=== PATIENT | male | born 1980 | race African-American/Black ===

== ENCOUNTER 2017-09-15 02:44 | Emergency (ER) | payer BC ==
--- NOTE | 2017-09-15 03:38 | ER ---
Nurse's Notes [facility] Name: Vidal Calderon Jr Age: 36 yrs Sex: Male : 1980 Arrival Date: 09/15/2017 Time: 02:49 Bed 20 Private MD: Diagnosis: urethritis Presentation: 09/15 02:55 Presenting complaint: Patient states: that he is having burning with urination. No fc frequency,. Has been going on x 3 days. Went to [facility] earlier and told that there was no bacteria in the urine. But the burning has continued and it is bothering him so he came to this ER. Transition of care: patient was not received from another setting of care. Onset of symptoms was September 12, 2017. Risk Assessment: Do you want to hurt yourself or someone else? Patient reports no desire to harm self or others. Initial Sepsis Screen: Does the patient meet any 2 criteria? No. Patient's initial sepsis screen is negative. Does the patient have a suspected source of infection? No. Patient's initial sepsis screen is negative. Care prior to arrival: None. 02:55 Method Of Arrival: Ambulatory fc 02:55 Acuity: ARIELLE 4 fc Triage Assessment: 02:57 General: Appears comfortable, Behavior is calm, cooperative, appropriate for age. Pain: fc Complains of pain in pelvis Pain currently is 6 out of 10 on a pain scale. Quality of pain is described as burning, Aggravated by urinating. EENT: No deficits noted. Neuro: Level of Consciousness is awake, alert, obeys commands, Oriented to person, place, time, situation. Cardiovascular: No deficits noted. Respiratory: No deficits noted. GI: No deficits noted. : Reports burning with urination. Derm: Skin is pink, warm \T\ dry. Musculoskeletal: Circulation, motion, and sensation intact. Capillary refill < 3 seconds, Range of motion: intact in all extremities. Historical: - Allergies: 03:14 No Known Allergies; lp1 - Home Meds: 03:14 lisinopril-hydrochlorothiazide 20-12.5 mg oral tab once daily [Active]; lp1 - PMHx: 03:14 Hypertension; lp1 - PSHx: 03:14 Knee surgery; lp1 - Immunization history:: Last tetanus immunization: unknown. - Social history:: Smoking status: Patient/guardian denies using tobacco. - Ebola Screening: : Patient negative for fever greater than or equal to 101.5 degrees Fahrenheit, and additional compatible Ebola Virus Disease symptoms Patient denies exposure to infectious person Patient denies travel to an Ebola-affected area in the 21 days before illness onset. Screenin:57 Abuse screen: Denies threats or abuse. Nutritional screening: No deficits noted. Tuberculosis screening: No symptoms or risk factors identified. Fall Risk None identified. Assessment: 03:12 General: Appears in no apparent distress. Behavior is appropriate for age. Pain: Denies lp1 pain. Neuro: Level of Consciousness is awake, alert, obeys commands. Cardiovascular: Patient's skin is warm and dry. Respiratory: Respiratory effort is even, unlabored. GI: No signs and/or symptoms were reported involving the gastrointestinal system. : Reports burning with urination. EENT: No signs and/or symptoms were reported regarding the EENT system. Derm: Skin is intact, Skin is dry, Skin is normal. Musculoskeletal: Circulation, motion, and sensation intact. Vital Signs: 02:55 BP 136 / 88; Pulse 68; Resp 18; Temp 98.8(O); Pulse Ox 100% on R/A; Weight 142.88 kg (R); Height 6 ft. 6 in. (198.12 cm) (R); Pain 6/10; 02:55 Body Mass Index 36.40 (142.88 kg, 198.12 cm) ED Course: 02:49 Patient arrived in ED. es 02:55 Arm band placed on Patient placed in an exam room, on a stretcher. 02:56 Triage completed. 02:57 Patient has correct armband on for positive identification. Bed in low position. Call light in reach. 02:59 Ondina Garrett, RN is Primary Nurse. lp1 03:23 No provider procedures requiring assistance completed. Patient did not have IV access lp1 during this emergency room visit. 03:27 Porfirio Ramsey MD is Attending Physician. tw4 Administered Medications: No medications were administered Outcome: 03:23 Medical screen evaluation completed per provider. Patient declined treatment. lp1 03:23 Condition: good 03:23 Instructed on follow up and referral plans. lp1 03:37 Discharge ordered by . tw4 03:38 Patient left the ED. lp1 Signatures: Carmen Monique Felicia RN RN fc Ondina Garrett RN RN lp1 Porfirio Ramsey MD MD tw4
[2017-09-15 05:20] LABS: Urine Blood NEGATIVE (NEG); Urine Glucose NEGATIVE (NEG); Urine Protein NEGATIVE (NEG)
--- NOTE | 2017-09-16 03:39 | EDPHYS ---
Physician Documentation [facility] Name: Vidal Calderon Jr Age: 36 yrs Sex: Male : 1980 Arrival Date: 09/15/2017 Time: 02:49 Bed 20 Private MD: ED Physician Porfirio Ramsey HPI: 09/15 04:12 This 36 yrs old Black Male presents to ER via Ambulatory with complaints of Urinary tw4 Problem. 04:12 The patient presents with urinary symptoms. Onset: The symptoms/episode began/occurred tw4 today. Modifying factors: The symptoms are alleviated by nothing, the symptoms are aggravated by nothing. Associated signs and symptoms: The patient has no apparent associated signs or symptoms. Severity of symptoms: At their worst the symptoms were moderate, in the emergency department the symptoms are unchanged. The patient has not experienced similar symptoms in the past. Historical: - Allergies: 03:14 No Known Allergies; lp1 - Home Meds: 03:14 lisinopril-hydrochlorothiazide 20-12.5 mg oral tab once daily [Active]; lp1 - PMHx: 03:14 Hypertension; lp1 - PSHx: 03:14 Knee surgery; lp1 - Immunization history:: Last tetanus immunization: unknown. - Social history:: Smoking status: Patient/guardian denies using tobacco. - Ebola Screening: : Patient negative for fever greater than or equal to 101.5 degrees Fahrenheit, and additional compatible Ebola Virus Disease symptoms Patient denies exposure to infectious person Patient denies travel to an Ebola-affected area in the 21 days before illness onset. ROS: 04:12 Constitutional: Negative for fever, chills, and weight loss, Cardiovascular: Negative tw4 for chest pain, palpitations, and edema, Respiratory: Negative for shortness of breath, cough, wheezing, and pleuritic chest pain, Abdomen/GI: Negative for abdominal pain, nausea, vomiting, diarrhea, and constipation. 04:12 : Positive for urinary symptoms, burning with urination, Negative for hematuria, pelvic pain, flank pain, bladder incontinence, foul smelling urine, penile discharge. Exam: 04:12 Constitutional: This is a well developed, well nourished patient who is awake, alert, tw4 and in no acute distress. Head/Face: Normocephalic, atraumatic. Chest/axilla: Normal chest wall appearance and motion. Nontender with no deformity. No lesions are appreciated. Cardiovascular: Regular rate and rhythm with a normal S1 and S2. No gallops, murmurs, or rubs. Normal PMI, no JVD. No pulse deficits. Respiratory: Lungs have equal breath sounds bilaterally, clear to auscultation and percussion. No rales, rhonchi or wheezes noted. No increased work of breathing, no retractions or nasal flaring. Abdomen/GI: Soft, non-tender, with normal bowel sounds. No distension or tympany. No guarding or rebound. No evidence of tenderness throughout. Vital Signs: 02:55 BP 136 / 88; Pulse 68; Resp 18; Temp 98.8(O); Pulse Ox 100% on R/A; Weight 142.88 kg fc (R); Height 6 ft. 6 in. (198.12 cm) (R); Pain 6/10; 02:55 Body Mass Index 36.40 (142.88 kg, 198.12 cm) MDM: 03:27 Patient medically screened. tw4 04:12 Differential diagnosis: nonspecific abdominal pain, UTI, urinary retention. Data tw4 reviewed: vital signs, nurses notes. Counseling: I had a detailed discussion with the patient and/or guardian regarding: the historical points, exam findings, and any diagnostic results supporting the discharge/admit diagnosis. ED course: Pt medicallly screened and refused treatment. 09/15 03:15 Order name: Urine Dipstick--Ancillary (enter results) rg2 Administered Medications: No medications were administered Disposition: 09/15/17 03:37 Discharged to Home. Impression: urethritis. - Condition is Stable. - Discharge Instructions: Urethritis, Adult. - Medication Reconciliation Form, Thank You Letter, Antibiotic Education, Prescription Opioid Use form. - Follow up: Private Physician; When: As needed; Reason: Recheck today's complaints, Re-evaluation by your physician. - Problem is new. - Symptoms are unchanged. Signatures: Dispatcher [employer] EDMS Iris Espitia RN RN Ondina Garrett RN RN lp1 Porfirio Ramsey MD MD tw4 Corrections: (The following items were deleted from the chart) 03:38 03:37 09/15/2017 03:37 Discharged to Home. Impression: urethritis. Condition is Stable. lp1 Forms are Medication Reconciliation Form, Thank You Letter, Antibiotic Education, Prescription Opioid Use. Follow up: Private Physician; When: As needed; Reason: Recheck today's complaints, Re-evaluation by your physician. Problem is new. Symptoms are unchanged. tw4
== END 2017-09-15 03:38 | disposition home or self-care (01) ==
LOC: ER 02:44
DX: N34.2 Other urethritis (principal); I10 Essential (primary) hypertension
CPT/HCPCS: 81003; 99281

== ENCOUNTER 2018-09-29 23:07 | Observation (INO) | payer BC ==
--- NOTE | 2018-09-29 23:24 | EDPHYS ---
Physician Documentation [facility] Name: Vidal Calderon Jr Age: 37 yrs Sex: Male : 1980 Arrival Date: 09/29/2018 Time: 23:08 Bed 5 Private MD: ED Physician Kirk Webb HPI: 09/29 23:17 This 37 yrs old Black Male presents to ER via Unassigned with complaints of Chest Pain, jez Chest Tightness, High Blood Pressure, Headache. 23:17 The patient or guardian reports chest pain that is located primarily in the substernal jez area, anterior chest wall, bilaterally. The pain does not radiate. Severity of pain: At its worst the pain was mild in the emergency department the pain is unchanged. 23:18 The patient has shortness of breath at rest. Onset: The symptoms/episode began/occurred jez just prior to arrival. The patient's shortness of breath has no apparent modifying factors. Severity of symptoms: At their worst the symptoms were mild moderate in the emergency department the symptoms have improved mildly. The chest pain is described as a heaviness, a pressure, squeezing. Historical: - Allergies: 23:30 metformin; rr5 23:30 amlodipine; rr5 - Home Meds: 23:30 Metoprolol Tartrate Oral [Active]; pioglitazone oral oral [Active]; rr5 - PMHx: 23:30 Hypertension; Diabetes - NIDDM; rr5 - Immunization history:: Adult Immunizations not up to date. - Social history:: Smoking status: Patient/guardian denies using tobacco, Patient/guardian denies using alcohol, street drugs. - Family history:: not pertinent. - Ebola Screening: : Patient negative for fever greater than or equal to 101.5 degrees Fahrenheit, and additional compatible Ebola Virus Disease symptoms Patient denies exposure to infectious person Patient denies travel to an Ebola-affected area in the 21 days before illness onset. ROS: 23:18 Constitutional: Negative for fever, chills, and weight loss, Eyes: Negative for injury, jez pain, redness, and discharge, ENT: Negative for injury, pain, and discharge, Neck: Negative for injury, pain, and swelling, Abdomen/GI: Negative for abdominal pain, nausea, vomiting, diarrhea, and constipation, Back: Negative for injury and pain, : Negative for injury, bleeding, discharge, and swelling, MS/Extremity: Negative for injury and deformity, Skin: Negative for injury, rash, and discoloration, Neuro: Negative for headache, weakness, numbness, tingling, and seizure, Psych: Negative for depression, anxiety, suicide ideation, homicidal ideation, and hallucinations, Allergy/Immunology: Negative for hives, rash, and allergies, Endocrine: Negative for neck swelling, polydipsia, polyuria, polyphagia, and marked weight changes, Hematologic/Lymphatic: Negative for swollen nodes, abnormal bleeding, and unusual bruising. 23:18 Cardiovascular: Positive for 23:18 Respiratory: Positive for Exam: 23:18 Constitutional: This is a well developed, well nourished patient who is awake, alert, jez and in no acute distress. Head/Face: Normocephalic, atraumatic. Eyes: Pupils equal round and reactive to light, extra-ocular motions intact. Lids and lashes normal. Conjunctiva and sclera are non-icteric and not injected. Cornea within normal limits. Periorbital areas with no swelling, redness, or edema. ENT: Nares patent. No nasal discharge, no septal abnormalities noted. Tympanic membranes are normal and external auditory canals are clear. Oropharynx with no redness, swelling, or masses, exudates, or evidence of obstruction, uvula midline. Mucous membranes moist. Neck: Trachea midline, no thyromegaly or masses palpated, and no cervical lymphadenopathy. Supple, full range of motion without nuchal rigidity, or vertebral point tenderness. No Meningismus. Chest/axilla: Normal chest wall appearance and motion. Nontender with no deformity. No lesions are appreciated. Cardiovascular: Regular rate and rhythm with a normal S1 and S2. No gallops, murmurs, or rubs. Normal PMI, no JVD. No pulse deficits. Respiratory: Lungs have equal breath sounds bilaterally, clear to auscultation and percussion. No rales, rhonchi or wheezes noted. No increased work of breathing, no retractions or nasal flaring. Abdomen/GI: Soft, non-tender, with normal bowel sounds. No distension or tympany. No guarding or rebound. No evidence of tenderness throughout. Back: No spinal tenderness. No costovertebral tenderness. Full range of motion. Male : Normal genitalia with no discharge or lesions. Skin: Warm, dry with normal turgor. Normal color with no rashes, no lesions, and no evidence of cellulitis. MS/ Extremity: Pulses equal, no cyanosis. Neurovascular intact. Full, normal range of motion. Neuro: Awake and alert, GCS 15, oriented to person, place, time, and situation. Cranial nerves II-XII grossly intact. Motor strength 5/5 in all extremities. Sensory grossly intact. Cerebellar exam normal. Normal gait. Psych: Awake, alert, with orientation to person, place and time. Behavior, mood, and affect are within normal limits. 23:18 Musculoskeletal/extremity: DVT Exam: No signs of deep vein thrombosis. no pain, no swelling, no tenderness, negative Homans' sign noted on exam, no appreciated bluish discoloration, no erythema, no increased warmth. Vital Signs: 23:30 BP 164 / 102; Pulse 64; Resp 17; Temp 98; Pulse Ox 99% ; Weight 147.42 kg; Height 6 ft. rr5 6 in. (198.12 cm); Pain 0/10; 09/30 00:30 BP 155 / 103; Pulse 59; Resp 19; Pulse Ox 100% ; rr5 01:00 BP 146 / 100; Pulse 65; Resp 17; Pulse Ox 99% on R/A; rr5 02:00 BP 141 / 94; Pulse 57; Resp 19; Pulse Ox 100% on R/A; Pain 0/10; rr5 09/29 23:30 Body Mass Index 37.56 (147.42 kg, 198.12 cm) rr5 MDM: 09/29 23:12 Patient medically screened. [facility] 23:19 Data reviewed: vital signs, nurses notes, lab test result(s), EKG, radiologic studies, [facility] plain films. 09/29 23:13 Order name: Basic Metabolic Panel; Complete Time: :42 [facility] 09/29 23:13 Order name: CBC with Diff; Complete Time: : [facility] 09/29 23:13 Order name: LFT's; Complete Time: :42 [facility] 09/29 23:13 Order name: Magnesium; Complete Time: 01:42 [facility] 09/29 23:13 Order name: NT PRO-BNP; Complete Time: :42 [facility] 09/29 23:13 Order name: PT-INR; Complete Time: :42 [facility] 09/29 23:13 Order name: Troponin (emerg Dept Use Only); Complete Time: 01:42 [facility] 09/29 23:13 Order name: XRAY Chest (1 view) [facility] 09/29 23:13 Order name: Lipase; Complete Time: 01:42 [facility] 09/30 00:23 Order name: Urine Dipstick--Ancillary (enter results) mw2 09/30 00:52 Order name: Urine Dipstick-Ancillary; Complete Time: 01:42 [facility] 09/29 23:13 Order name: EKG; Complete Time: 23:15 [facility] 09/29 23:13 Order name: Cardiac monitoring; Complete Time: 23:26 [facility] 09/29 23:13 Order name: EKG - Nurse/Tech; Complete Time: 23:26 [facility] 09/29 23:13 Order name: IV Saline Lock; Complete Time: 23:26 [facility] 09/29 23:13 Order name: Labs collected and sent; Complete Time: 23:26 [facility] 09/29 23:13 Order name: O2 Per Protocol; Complete Time: 23:26 [facility] 09/29 23:13 Order name: O2 Sat Monitoring; Complete Time: 23:26 [facility] 09/29 23:13 Order name: Urine Dipstick-Ancillary (obtain specimen); Complete Time: 00:41 [facility] Administered Medications: 09/30 00:34 Drug: Aspirin Chewable Tablet 324 mg Route: PO; rr5 01:30 Follow up: Response: No adverse reaction rr5 01:15 Drug: NS 0.9% 1000 ml Route: IV; Rate: 125 ml/hr; Site: right antecubital; rr5 02:28 Follow up: Response: No adverse reaction; IV Status: Infusion continued upon admission; rr5 IV Intake: 125ml 02:00 Drug: Lovenox 1 mg/kg {Note: given 100 unit as per order by dr. webb.} Route: rr5 Sub-Q; Site: right lower abdomen; 02:28 Follow up: Response: No adverse reaction; 100 mg given SQ rr5 Disposition: 09/29/18 23:23 Hospitalization ordered by Ulises Scott for Inpatient Admission. Preliminary diagnosis are Essential (primary) hypertension, Type 2 diabetes mellitus, Chest pain, unspecified, Unspecified kidney failure. - Bed requested for Telemetry/MedSurg (Inpatient). - Status is Inpatient Admission. rr5 - Condition is Fair. - Problem is new. - Symptoms have improved. UTI on Admission? No Signatures: Dispatcher [employer] EDMS Era Hunt RN RN mw Anderson, Corey, MD MD cha Roque, Raymond, RN RN rr5 Corrections: (The following items were deleted from the chart) 00:18 09/29 23:23 Hospitalization Ordered by Ulises Scott MD for Observation. Preliminary jez diagnosis is Essential (primary) hypertension; Type 2 diabetes mellitus; Chest pain, unspecified. Bed requested for Telemetry/MedSurg (Inpatient). Status is Observation. Condition is Fair. Problem is new. Symptoms have improved. UTI on Admission? No. jez 09/30 01:23 00:18 09/29/2018 23:23 Hospitalization Ordered by Ulises Scott MD for Inpatient Admission. Preliminary diagnosis is Essential (primary) hypertension; Type 2 diabetes mellitus; Chest pain, unspecified. Bed requested for Telemetry/MedSurg (Inpatient). Status is Inpatient Admission. Condition is Fair. Problem is new. Symptoms have improved. UTI on Admission? No. jez 01:44 01:23 09/29/2018 23:23 Hospitalization Ordered by Ulises Scott MD for Inpatient jez Admission. Preliminary diagnosis is Essential (primary) hypertension; Type 2 diabetes mellitus; Chest pain, unspecified. Bed requested for Telemetry/MedSurg (Inpatient). Status is Inpatient Admission. Condition is Fair. Problem is new. Symptoms have improved. UTI on Admission? No. [place] 02:28 01:44 09/29/2018 23:23 Hospitalization Ordered by Ulises Scott MD for Inpatient rr5 Admission. Preliminary diagnosis is Essential (primary) hypertension; Type 2 diabetes mellitus; Chest pain, unspecified; Unspecified kidney failure. Bed requested for Telemetry/MedSurg (Inpatient). Status is Inpatient Admission. Condition is Fair. Problem is new. Symptoms have improved. UTI on Admission? No. jez
[2018-09-29] MEDS ORDERED: ASPIRIN 81 MG CHEWABLE TABLET ONE (23:32)
[2018-09-29] MEDS ORDERED: NA CHLORIDE 0.9% 1,000 ML ONE (23:32)
[2018-09-30 00:30] LABS: Basophils % 0.4 % (0-1.3); Eosinophils % 3.9 % (0-4.4); Hematocrit 44.5 % (39.6-49.0); Lymphocytes % 42.1 % (15.3-44.8); MPV 8.4 fL (7.6-11.3); Monocytes % 7.3 % (3.3-12.3); RBC Red Blood Cell Count 5.34 M/uL (4.33-5.43)
[2018-09-30 00:39] LABS: Protime INR 1.04
[2018-09-30 00:51] LABS: Urine Blood NEGATIVE (NEG); Urine Glucose NEGATIVE (NEG); Urine Protein NEGATIVE (NEG); Urine Specific Gravity 1.015 (1.005-1.030)
[2018-09-30 00:53] LABS: ALT/SGPT 26 U/L (12-78); AST/SGOT 21 U/L (15-37); Albumin 4.4 g/dL (3.4-5.0); Alkaline Phosphatase 62 U/L (45-117); BUN Blood Urea Nitrogen 13 mg/dL (7-18); Bicarbonate 31 mmol/L (21-32); Bilirubin Direct < 0.1 mg/dL (0-0.2); Bilirubin Total 0.3 mg/dL (0.2-1.0); Glucose Level 108 mg/dL (74-106); Lipase 100 U/L (73-393); Magnesium 2.2 mg/dL (1.8-2.4); NT PRO-BNP 53 pg/mL (<125); Potassium 3.8 mmol/L (3.5-5.1); Protein, Total 8.7 g/dL (6.4-8.2); Sodium Level 141 mmol/L (136-145); Troponin (Emerg Dept Use Only) < 0.02 ng/mL (0.0-0.045)
[2018-09-30] MEDS ORDERED: ACETAMINOPHEN 500 MG TAB PO PRN (01:06)
[2018-09-30] MEDS ORDERED: ALPRAZOLAM 0.25 MG TABLET PO PRN (01:06)
[2018-09-30] MEDS ORDERED: MORPHINE 4 MG/ML SYR IV PRN (01:06)
[2018-09-30] MEDS ORDERED: ENOXAPARIN 100 MG/ML SYR SQ ONE (02:13)
--- NOTE | 2018-09-30 02:30 | ER ---
Nurse's Notes [facility] Name: Vidal Calderon Jr Age: 37 yrs Sex: Male : 1980 Arrival Date: 09/29/2018 Time: 23:08 Bed 5 Private MD: Diagnosis: Essential (primary) hypertension;Type 2 diabetes mellitus;Chest pain, unspecified;Unspecified kidney failure Presentation: 09/29 23:30 Presenting complaint: Patient states: im having high blood pressure at home it went up rr5 179/98 mmHg. I have been changing my BP and diabetes medicines right now. denies dizziness or headache. 23:30 Transition of care: patient was not received from another setting of care. Onset of rr5 symptoms was September 30, 2018. Risk Assessment: Do you want to hurt yourself or someone else? Patient reports no desire to harm self or others. Initial Sepsis Screen: Does the patient meet any 2 criteria? No. Patient's initial sepsis screen is negative. Does the patient have a suspected source of infection? No. Patient's initial sepsis screen is negative. Care prior to arrival: None. 23:30 Method Of Arrival: Ambulatory rr5 23:30 Acuity: ARIELLE 3 rr5 Triage Assessment: 23:30 General: Appears in no apparent distress. comfortable, Behavior is calm, cooperative, rr5 appropriate for age. Pain: Denies pain. Cardiovascular: Capillary refill < 3 seconds Patient's skin is warm and dry. Rhythm is sinus bradycardia. Historical: - Allergies: 23:30 metformin; rr5 23:30 amlodipine; rr5 - Home Meds: 23:30 Metoprolol Tartrate Oral [Active]; pioglitazone oral oral [Active]; rr5 - PMHx: 23:30 Hypertension; Diabetes - NIDDM; rr5 - Immunization history:: Adult Immunizations not up to date. - Social history:: Smoking status: Patient/guardian denies using tobacco, Patient/guardian denies using alcohol, street drugs. - Family history:: not pertinent. - Ebola Screening: : Patient negative for fever greater than or equal to 101.5 degrees Fahrenheit, and additional compatible Ebola Virus Disease symptoms Patient denies exposure to infectious person Patient denies travel to an Ebola-affected area in the 21 days before illness onset. Screenin:35 Abuse screen: Denies threats or abuse. Denies injuries from another. Nutritional rr5 screening: No deficits noted. Tuberculosis screening: No symptoms or risk factors identified. 09/30 01:00 Fall Risk IV access (20 points). Total Pereyra Fall Scale indicates No Risk (0-24 pts). rr5 Assessment: 09/29 23:30 General: Appears in no apparent distress. comfortable, Behavior is calm, cooperative, rr5 appropriate for age. 23:30 Pain: Denies pain. Pain does not radiate. Pain began n/a. Neuro: Level of Consciousness rr5 is awake, alert, obeys commands, Oriented to person, place, time, situation, Appropriate for age. Cardiovascular: Reports I'm having High blood pressure Capillary refill < 3 seconds Patient's skin is warm and dry. Respiratory: Airway is patent Respiratory effort is even, unlabored, Respiratory pattern is regular, symmetrical. GI: No signs and/or symptoms were reported involving the gastrointestinal system. : No signs and/or symptoms were reported regarding the genitourinary system. EENT: No signs and/or symptoms were reported regarding the EENT system. Derm: Skin is intact, Skin temperature is warm. Musculoskeletal: Capillary refill < 3 seconds, Range of motion: intact in all extremities. 09/30 01:00 Reassessment: Patient appears in no apparent distress at this time. Patient is alert, rr5 oriented x 3, equal unlabored respirations, skin warm/dry/pink. awake alert, breathing spontaneously at room air. no complaints made.awaiting for laboratory results. 01:55 Reassessment: Patient appears in no apparent distress at this time. Patient is alert, rr5 oriented x 3, equal unlabored respirations, skin warm/dry/pink. talking to phone comfortably no complaints made. awaiting for the transfer. Vital Signs: 09/29 23:30 BP 164 / 102; Pulse 64; Resp 17; Temp 98; Pulse Ox 99% ; Weight 147.42 kg; Height 6 ft. rr5 6 in. (198.12 cm); Pain 0/10; 09/30 00:30 BP 155 / 103; Pulse 59; Resp 19; Pulse Ox 100% ; rr5 01:00 BP 146 / 100; Pulse 65; Resp 17; Pulse Ox 99% on R/A; rr5 02:00 BP 141 / 94; Pulse 57; Resp 19; Pulse Ox 100% on R/A; Pain 0/10; rr5 09/29 23:30 Body Mass Index 37.56 (147.42 kg, 198.12 cm) rr5 ED Course: 09/29 23:08 Patient arrived in ED. do 23:12 Kirk Webb MD is Attending Physician. jez 23:14 Stef Ambriz, RN is Primary Nurse. rr5 23:22 Ulises Scott MD is Hospitalizing Provider. jez 23:30 Patient has correct armband on for positive identification. monitoring manager on. Pulse rr5 ox on. NIBP on. 23:30 Arm band placed on. rr5 23:38 X-ray completed. Portable x-ray completed in exam room. Patient tolerated procedure kw well. 23:40 XRAY Chest (1 view) In Process Unspecified. EDMS 09/30 00:20 Missed attempt(s): 20 gauge in left antecubital area. Bleeding controlled, band aid rr5 applied, catheter tip intact. 00:37 Triage completed. rr5 00:59 Inserted saline lock: 20 gauge in right antecubital area, using aseptic technique. bb 02:10 No provider procedures requiring assistance completed. Patient admitted, IV remains in rr5 place. intact, No redness/swelling at site. Patient maintains SpO2 saturation greater than 95% on room air. Administered Medications: 00:34 Drug: Aspirin Chewable Tablet 324 mg Route: PO; rr5 01:30 Follow up: Response: No adverse reaction rr5 01:15 Drug: NS 0.9% 1000 ml Route: IV; Rate: 125 ml/hr; Site: right antecubital; rr5 02:28 Follow up: Response: No adverse reaction; IV Status: Infusion continued upon admission; rr5 IV Intake: 125ml 02:00 Drug: Lovenox 1 mg/kg {Note: given 100 unit as per order by dr. webb.} Route: rr5 Sub-Q; Site: right lower abdomen; 02:28 Follow up: Response: No adverse reaction; 100 mg given SQ rr5 Intake: 02:28 IV: 125ml; Total: 125ml. rr5 Outcome: 09/29 23:23 Decision to Hospitalize by Provider. jez 09/30 02:10 Admitted to Med/surg accompanied by tech, room 210, with chart, Report called to christos rr5 Condition: stable Instructed on the need for admit. 02:28 Patient left the ED. rr5 Signatures: Dispatcher [employer] EDKirk Daniel MD MD cha Ballard, Brenda, RN RN Erum Chase Danielle do Roque, Raymond, RN RN rr5
[2018-09-30 03:11] VITALS: BMI 37.3
[2018-09-30] MEDS ORDERED: DIPHENHYDRAMINE 50 MG/ML VIAL IV ONE (05:38)
--- NOTE | 2018-09-30 06:43 | P.HP ---
Certification for Inpatient Patient admitted to: Observation With expected LOS: <2 Midnights Patient will require the following post-hospital care: None Practitioner: I am a practitioner with admitting privileges, knowledge of patient current condition, hospital course, and medical plan of care. Services: Services provided to patient in accordance with Admission requirements found in Title 42 Section 412.3 of the Code of Federal Regulations Patient History Date of Service: 09/30/18 Reason for admission: Chest pain rule out acute coronary syndrome History of Present Illness: Patient is a 37-year-old gentleman who came into the hospital with chest discomfort. Pain was mainly in the sternal region and was substernal. Patient denies any radiation of the pain. Patient has shortness of breath as well. Patient states that the symptoms were getting worse and he had some heaviness along with some pressure. The pain was squeezing as well. He decided to come to the hospital for further evaluation. In the ER his initial EKG and troponins were unremarkable. However, he does have some risk factors and he needs to be admitted to the hospital to be ruled out for acute coronary syndrome. Will get Cardiology consultation as well. Allergies No Known Allergies Allergy (Unverified 11/23/14 02:23) Home Medications: Metoprolol Tartrate [Lopressor*] 25 mg PO BEDTIME 09/30/18 Pioglitazone HCl 15 mg PO BREAKFAST 09/30/18 - Past Medical/Surgical History Has patient received pneumonia vaccine in the past: Yes Diabetic: Yes -: HTN -: DM type 2 diagnosed Feb 2018 -: Dil[facility] Knee Surgery (miniscus) - Family History Mother Medical History: Diabetes Notes: Diabetic. Uterine cancer. Father Notes: Diabetes. . - Social History Smoking Status: Never smoker Alcohol use: No CD- Drugs: No Caffeine use: Yes Place of Residence: Home Review of Systems 10-point ROS is otherwise unremarkable Physical Examination - Vital Signs Temperature: 97.4 F Blood Pressure: 143/88 Pulse: 55 Respirations: 19 Pulse Ox (%): 100 - Physical Exam General: Alert, In no apparent distress, Oriented x3 HEENT: Atraumatic, PERRLA, Mucous membr. moist/pink, EOMI, Sclerae nonicteric Neck: Supple, 2+ carotid pulse no bruit, No LAD, Without JVD or thyroid abnormality Respiratory: Clear to auscultation bilaterally, Normal air movement Cardiovascular: Regular rate/rhythm, Normal S1 S2, No murmurs Gastrointestinal: Normal bowel sounds, Soft and benign, Non-distended, No tenderness Musculoskeletal: No clubbing, No swelling, No tenderness Integumentary: No rashes Neurological: Normal gait, Normal speech, Normal strength at 5/5 x4 extr, Normal tone, Sensation intact, Cranial nerves 3-12 intact, Normal affect Lymphatics: No axilla or inguinal lymphadenopathy - Studies Laboratory Data (last 24 hrs) 09/30/18 00:15: PT 12.2, INR 1.04 09/30/18 00:15: WBC 4.7, Hgb 14.8, Hct 44.5, Plt Count 231 09/30/18 00:15: Sodium 141, Potassium 3.8, BUN 13, Creatinine 1.57 H, Glucose 108 H, Magnesium 2.2, Total Bilirubin 0.3, AST 21, ALT 26, Alkaline Phosphatase 62, Lipase 100 Assessment & Plan - Problems (Diagnosis) (1) Chest pain, rule out acute myocardial infarction Current Visit: Yes Status: Acute (2) Hypertension Current Visit: Yes Status: Acute (3) Type 2 diabetes mellitus Current Visit: Yes Status: Acute (4) Morbid obesity Current Visit: Yes Status: Acute - Plan 1. Serial troponins and EKG 2. Cardiology consultation 3. Echocardiogram 4. Anti-platelet therapy, anti coagulation, beta-simi, statin, and O2 as needed 5. IV morphine for pain 6. Nitro p.r.n. 7. GI and DVT prophylaxis Discharge Plan: Home Plan to discharge in: 48 Hours - Advance Directives Does patient have a Living Will: No Does patient have a Durable POA for Healthcare: No - Code Status/Comfort Care Code Status Assessed: Yes Code Status: Full Code Critical Care: No Time Spent Managing PTS Care (In Minutes): 45
--- NOTE | 2018-09-30 07:55 | RAD REPORT ---
EXAM DESCRIPTION: [place] Single View09/29/2018 11:39 pm CLINICAL HISTORY: Chest pain COMPARISON: 2008 FINDINGS: The lungs appear clear of acute infiltrate. The heart is mildly to moderately enlarged IMPRESSION: No acute abnormalities displayed
[2018-09-30 08:46] VITALS: O2SAT 99
[2018-09-30] MEDS ORDERED: METOPROLOL TAR 50 MG TAB PO SCH (09:00)
[2018-09-30] MEDS ORDERED: ASPIRIN 325 MG TAB PO SCH (09:00)
[2018-09-30] MEDS ORDERED: ENOXAPARIN 40 MG/0.4 ML SQ SCH (09:00)
[2018-09-30] MEDS ORDERED: ASPIRIN EC 81 MG TAB PO SCH (09:00)
[2018-09-30] MEDS ORDERED: GLUCAGON 1 MG/VIAL IM PRN (11:42)
[2018-09-30] MEDS ORDERED: D50W 25 GM/50 ML SYRINGE IV PRN (11:42)
--- NOTE | 2018-09-30 15:37 | EKG ---
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
--- NOTE | 2018-09-30 15:39 | EKG ---
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
[2018-09-30] MEDS ORDERED: INSULIN -REGULAR HUMAN 50 UNIT/0.5 ML ML SQ SCH (16:30)
--- NOTE | 2018-09-30 16:53 | ECHO ---
HEIGHT: 6 ft 6 in WEIGHT: 323 lb 0 oz DATE OF STUDY: 09/30/[address]: Ulises Scott MD 2-DIMENSIONAL: YES M.MODE: YES DOPPLER: YES COLOR FLOW: YES TDS: NO PORTABLE: NO DEFINITY: NO BUBBLE STUDY: NO DIAGNOSIS: CHEST PAIN RULE OUT ACUTE CORONARY SYNDROME CARDIAC HISTORY: CATHERIZATION: NO SURGERY: NO PROSTHETIC VALVE: NO PACEMAKER: NO MEASUREMENTS (cm) DIASTOLIC (NORMALS) SYSTOLIC (NORMALS) IVSd 1.0 (0.6-1.2) LA Diam 3.8 (1.9-4.0) LVEF 66% LVIDd 5.5 (3.5-5.7) LVIDs 3.4 (2.0-3.5) %FS 37% LVPWd 1.2 (0.6-1.2) Ao Diam 4.0 (2.0-3.7) 2 DIMENSIONAL ASSESSMENT: RIGHT ATRIUM: NORMAL LEFT ATRIUM: NORMAL RIGHT VENTRICLE: NORMAL LEFT VENTRICLE: NORMAL TRICUSPID VALVE: NORMAL MITRAL VALVE: NORMAL PULMONIC VALVE: NORMAL AORTIC VALVE: NORMAL PERICARDIAL EFFUSION: NONE AORTIC ROOT: NORMAL LEFT VENTRICULAR WALL MOTION: NORMAL. DOPPLER/COLOR FLOW: NORMAL. COMMENTS: NORMAL 2D ECHOCARDIOGRAM WITH DOPPLER. NO WALL MOTION ABNORMALITIES. NO EFFUSION. TECHNOLOGIST: PRADEEP EPPS
[2018-09-30 17:03] VITALS: BP 143/89; TEMP 97.6
--- NOTE | 2018-10-01 06:12 | CON ---
Date of Consultation: 09/30/2018 Reason For Consultation: Hypertension and chest pain. History Of Present Illness: Mr. Calderon is a 37-year-old black male with history of hypertension and diabetes. Apparently has been taking metoprolol in the past and they just increased his dose, but he developed hives from it. He has also taken metformin for diabetes, which is fairly well controlled. At one point, he used to take lisinopril and that worked very well for him, but that was changed. His primary care physician was in [place] and he is now planning to move here and is looking for [facility] primary care. He came in with headaches, hypertension, dizziness, atypical chest pain over the le ft lateral chest wall without any nausea, vomiting, diaphoresis, PND, orthopnea, pedal edema, palpita tions, or syncope. Past Medical History: As stated above. Allergies: NONE. Review of Systems: Negative. Social History: Negative. Family History: Negative. Medications: Include metformin and metoprolol. Physical Examination: Vital Signs: He weighed 323 pounds. HEENT: Negative. Neck: Supple with no bruit. Chest: Clear. Cardiac: Revealed a regular rhythm and rate with S4 gallops. Abdomen: Benign. Extremities: Reveal no clubbing, cyanosis, or edema. Diagnostic Data: Showed a creatinine of 1.57, otherwise it was normal. EKG was normal. Echocardiog kinga was normal. Impression And Plan: 1.Atypical chest pain, most likely secondary to hypertension. 2.Hypertension. I would put him back on lisinopril with hydrochlorothiazide and discontinue his met oprolol because he is developing hives from it. 3.Diabetes. 4.Renal insufficiency. I think Mr. Calderon can go home whenever it is okay with Dr. Scott. I will make an arrangement for him to have an outpatient stress test because of his risk factors and chest pain. SANTA/JOVON Voice ID: [id number] Report ID: [id number]
== END 2018-09-30 17:05 | disposition home or self-care (01) ==
LOC: ER 23:07 → ERHOLD 09-30 01:06 → 2ND 09-30 02:14
PROVIDERS: ADMIT Hospitalist; ATTEND Family Medicine
DX: R07.89 Other chest pain (principal); I10 Essential (primary) hypertension; E11.9 Type 2 diabetes mellitus without complications; N28.9 Disorder of kidney and ureter, unspecified; I44.0 Atrioventricular block, first degree; E66.01 Morbid (severe) obesity due to excess calories; Z68.37 Body mass index [BMI] 37.0-37.9, adult; Z79.84 Long term (current) use of oral hypoglycemic drugs; Z79.899 Other long term (current) drug therapy
CPT/HCPCS: 36415; 71045; 80048; 80061; 80076; 81003; 82962; 83690; 83735; 83880; 84484; 85025; 85610; 93005; 93306; 96360; 96372; 99285; G0378; J1650; J7030